=== PATIENT | male | born 2005 | race Caucasian/White ===

== ENCOUNTER 2025-01-22 22:50 | Emergency (ER) | payer SELFPAY ==
[2025-01-22 22:59] VITALS: BP 129/79; PULSE 62; RESP 18; TEMP 98.4; BMI 29.8
[2025-01-23 00:52] LABS: HIV INTERPRETATION NEGATIVE (NEGATIVE)
[2025-01-23 00:53] LABS: HCV DIAGNOSTIC IN-HOUSE W/RFLX NON-REACTIVE (NONREACTIVE)
== END 2025-01-23 01:04 | disposition home or self-care (01) ==
LOC: JER 22:50
DX: R07.2 Precordial pain (principal); R09.89 Other specified symptoms and signs involving the circulatory and respiratory systems; M79.10 Myalgia, unspecified site; R68.2 Dry mouth, unspecified
CPT/HCPCS: 0241U-QW; 36415; 71046-TC-FY; 86803; 87389; 93005; 93010; 99285-25